=== PATIENT | female | born 1955 | race Caucasian/White ===

== ENCOUNTER 2019-02-05 05:45 | Inpatient (IN) ==
[2019-01-29 13:22] LABS: Basophils # 0.1 10*3/uL (0.0-0.2); Basophils % 0.8 % (0.0-0.8); Eosinophils # 0.2 10*3/uL (0.0-0.87); Eosinophils % 2.4 % (0.00-10.9); Hematocrit 43.1 VOL% (35.7-47.0); Immature Granulocytes % 0.4 %; Immature Granulocytes Absolute 0.04 #; Lymphocytes # 2.5 10*3/uL (1.4-4.0); Lymphocytes % 25.7 % (21.3-54.2); Mean Corpuscular HGB Conc 32.5 GM/DL (32-36); Mean Corpuscular Hemoglobin 30 PG (27-34); Mean Corpuscular Volume 92.3 FL (87-102); Mean Platelet Volume 9.6 FL (9.6-12.0); Monocytes # 0.9 10*3/uL (0.11-0.8); Monocytes % 9.3 % (1.7-12.7); Neutrophils # 5.9 10*3/uL (1.4-7.4); Neutrophils % 61.4 % (38.7-73.9); Platelet Count 317 T/CUMM (130-400); Red Blood Count 4.67 MC/CUMM (3.8-5.5); White Blood Count 9.6 T/CUMM (4-12)
[2019-01-29 13:42] LABS: Calcium 8.5 MG/DL (8.5-10.1); Osmolality,Calculated 281.5 MOS/KG (273-304)
[2019-01-29 13:46] LABS: Apearance,Urine Slightly Hazy (Clear); Bacteria,Urine Moderate /HPF (Few); Bilirubin,Urine Negative (Negative); Blood, Urine Small mg/dL (Negative); Glucose,Urine (UA) Negative (Negative); Ketones,Urine Negative (Negative); Mucus,Urine Occasional /LPF (Occasional); Nitrite,Urine Positive (Negative); Protein,Urine 30 MG/DL; RBC,Urine 1 /HPF (0-4); Squamous Epithelial Cell,Urine Occasional /HPF (0-10); Urine Color Yellow (Yellow); Urine Specific Gravity 1.013 (1.001-1.035); Urine Urobilinogen < 2.0 EU/DL (0.2-1.0); WBC,Urine 17 /HPF (0-6)
[~2019-02-05 05:45] MED LIST: FAMOTIDINE 20 MG TABLET PO ONE
[2019-02-05] MEDS ORDERED: LEVOFLOXACIN INJ 500 MG in PREMIX 1 EACH IV ONE (06:00)
[2019-02-05] MEDS ORDERED: LACTATED RINGERS 1,000 ML IV SCH (06:00)
[2019-02-05] MEDS ORDERED: ALVIMOPAN 12 MG CAPSULE ONE (06:11)
[2019-02-05] MEDS ORDERED: FAMOTIDINE 20 MG TABLET ONE (06:49)
[2019-02-05] MEDS ORDERED: ALVIMOPAN 12 MG CAPSULE PO ONE (06:53)
[2019-02-05] MEDS ORDERED: AZTREONAM 1,000 MG in SYRINGE 1 EACH IV ONE (08:00)
[2019-02-05 09:09] LABS: Amorphous Crystals,Urine Occasional /HPF (Few); Apearance,Urine CLEAR (Clear); Bacteria,Urine Occasional /HPF (Few); Bilirubin,Urine Negative (Negative); Blood, Urine Negative (Negative); Glucose,Urine (UA) Negative (Negative); Ketones,Urine Negative (Negative); Mucus,Urine Occasional /LPF (Occasional); Nitrite,Urine Positive (Negative); Protein,Urine Negative; RBC,Urine 3 /HPF (0-4); Squamous Epithelial Cell,Urine Occasional /HPF (0-10); Urine Color Yellow (Yellow); Urine Specific Gravity 1.009 (1.001-1.035); Urine Urobilinogen < 2.0 EU/DL (0.2-1.0); WBC,Urine 13 /HPF (0-6)
[2019-02-05] MEDS ORDERED: TISSUE ADHESIVE 1 EACH APPLICATOR TOP ONE (09:42)
[2019-02-05] MEDS ORDERED: ONDANSETRON 4 MG/2 ML VIAL IV PRN (09:46)
[2019-02-05] MEDS ORDERED: oxyCODONE/ACETAMINOPHEN 5-325 MG TABLET PO PRN ×2 (09:50→09:55)
[2019-02-05] MEDS ORDERED: HYDROmorphone 2 MG/1 ML VIAL IV PRN (09:50)
[2019-02-05] MEDS ORDERED: PROPOFOL 200 MG/20 ML VIAL IV ONE (10:14)
[2019-02-05] MEDS ORDERED: SEVOFLURANE 1 UNIT/15 MINUTE INH ONE (10:14)
[2019-02-05] MEDS ORDERED: fentaNYL 100 MCG/2 ML VIAL ONE (10:14)
[2019-02-05] MEDS ORDERED: ACETAMINOPHEN 1,000 MG/100 ML VIAL IV ONE (10:15)
[2019-02-05] MEDS ORDERED: SUCCINYLCHOLINE 200 MG/10 ML VIAL ONE (10:15)
[2019-02-05] MEDS ORDERED: GLYCOPYRROLATE 0.4 MG/2 ML VIAL ONE (10:15)
[2019-02-05] MEDS ORDERED: NEOSTIGMINE 10 MG/10 ML VIAL ONE (10:15)
[2019-02-05] MEDS ORDERED: ROCURONIUM 100 MG/10 ML VIAL IV ONE (10:15)
[2019-02-05] MEDS ORDERED: DEXAMETHASONE 4 MG/1 ML VIAL ONE (10:15)
[2019-02-05] MEDS ORDERED: MIDAZOLAM 2 MG/2 ML VIAL ONE (10:15)
[2019-02-05] MEDS ORDERED: ONDANSETRON 4 MG/2 ML VIAL ONE (10:15)
[2019-02-05] MEDS: AMOXICILLIN 500 MG CAPSULE PO SCH ×2 (14:59→21:32)
[2019-02-05] MEDS: SODIUM CHLORIDE 0.45% 1,000 ML IV SCH (15:00)
[2019-02-05] MEDS ORDERED: DEXTROSE 50% 25 GM/50 ML VIAL IV PRN (15:07)
[2019-02-05] MEDS ORDERED: GLUCAGON 1 MG VIAL IM PRN (15:07)
[2019-02-05] MEDS ORDERED: PHENOL 1.4% THROAT SPRAY 177 ML BOTTLE PO PRN (20:14)
[2019-02-05] MEDS ORDERED: FAMOTIDINE 20 MG TABLET PO SCH (21:00)
[2019-02-05] MEDS: FAMOTIDINE 20 MG TABLET PO SCH (21:32)
[2019-02-06] MEDS: SODIUM CHLORIDE 0.45% 1,000 ML IV SCH (01:15)
[2019-02-06] MEDS: LEVOTHYROXINE 100 MCG TABLET PO SCH (08:20)
[2019-02-06] MEDS: POTASSIUM CITRATE 10 MEQ TABLET PO SCH (08:21)
[2019-02-06] MEDS: hydroCHLOROthiazide 25 MG TABLET PO SCH (08:21)
[2019-02-06] MEDS: OXYBUTYNIN XL 10 MG TABLET PO SCH (08:25)
[2019-02-06] MEDS: amLODIPine 10 MG TABLET PO SCH (08:25)
[2019-02-06 08:57] LABS: Basophils % 0.2 % (0.0-0.8); Hematocrit 33.5 VOL% (35.7-47.0); Hemoglobin 10.9 GM/DL (12.0-16.0); Immature Granulocytes Absolute 0.23 #; Lymphocytes # 1.5 10*3/uL (1.4-4.0); Lymphocytes % 6.8 % (21.3-54.2); Mean Corpuscular HGB Conc 32.5 GM/DL (32-36); Mean Corpuscular Hemoglobin 30 PG (27-34); Mean Platelet Volume 9.8 FL (9.6-12.0); Monocytes # 1.7 10*3/uL (0.11-0.8); Monocytes % 7.7 % (1.7-12.7); Neutrophils % 84.3 % (38.7-73.9); Platelet Count 268 T/CUMM (130-400); Red Blood Count 3.64 MC/CUMM (3.8-5.5); Red Cell Distribution Width 12.6 % (9.3-17.3); White Blood Count 22.5 T/CUMM (4-12)
[2019-02-06] MEDS ORDERED: traZODone 50 MG TABLET PO SCH (09:00)
[2019-02-06 09:20] LABS: Band Neutrophils 2 % (0-10); Lymphocytes 5 % (20-55); Platelet Estimate Normal; Segmented Neutrophils 84 % (50-85); Total Cells Counted 100
[2019-02-06 09:28] LABS: Osmolality,Calculated 270.8 MOS/KG (273-304); Potassium 4.3 MMOL/L (3.5-5.1)
[2019-02-06] MEDS ORDERED: FUROSEMIDE 20 MG/2 ML VIAL IV ONE (09:56)
[2019-02-06] MEDS: FAMOTIDINE 20 MG TABLET PO SCH (20:31)
[2019-02-07] MEDS: LEVOTHYROXINE 100 MCG TABLET PO SCH (06:43)
[2019-02-07 06:52] LABS: Calcium 8.1 MG/DL (8.5-10.1); Osmolality,Calculated 289.4 MOS/KG (273-304); Potassium 3.6 MMOL/L (3.5-5.1)
[2019-02-07 07:58] VITALS: BP 118/75
[2019-02-07] MEDS: hydroCHLOROthiazide 25 MG TABLET PO SCH (09:15)
[2019-02-07] MEDS: OXYBUTYNIN XL 10 MG TABLET PO SCH (09:15)
[2019-02-07] MEDS: POTASSIUM CITRATE 10 MEQ TABLET PO SCH (09:15)
[2019-02-07] MEDS: amLODIPine 10 MG TABLET PO SCH (09:15)
[2019-02-07] MEDS ORDERED: traZODone 50 MG TABLET PO SCH (21:00)
[2019-02-10 16:36] LABS: Stone Source Kidney
== END 2019-02-07 10:05 | disposition home or self-care (01) | DRG 660 ==
LOC: N.RAD 05:45 → N.SDSINP 05:50 → EDSDCBED 09:46 → N.5E 10:58 → N.RAD 02-07 10:05 → UNDODEPSDC 02-07 14:44
PROVIDERS: ADMIT Urology; ATTEND Urology

== ENCOUNTER 2019-02-16 04:08 | Inpatient (IN) ==
[2019-02-16] MEDS ORDERED: SODIUM CHLORIDE 0.9% 1,000 ML IV STA (04:38)
[2019-02-16 04:49] LABS: Basophils # 0.2 10*3/uL (0.0-0.2); Basophils % 0.4 % (0.0-0.8); Hemoglobin 11.5 GM/DL (12.0-16.0); Immature Granulocytes Absolute 1.25 #; Lymphocytes # 0.9 10*3/uL (1.4-4.0); Lymphocytes % 2.2 % (21.3-54.2); Mean Corpuscular HGB Conc 32.9 GM/DL (32-36); Mean Corpuscular Volume 92.1 FL (87-102); Mean Platelet Volume 9.3 FL (9.6-12.0); Monocytes % 7.4 % (1.7-12.7); Platelet Count 407 T/CUMM (130-400); Red Cell Distribution Width 12.8 % (9.3-17.3)
[2019-02-16 04:51] LABS: White Blood Count 41.3 T/CUMM (4-12)
[2019-02-16 04:53] LABS: INR 0.9; PT Patient Result 9.7 SECS; Partial Thromboplastin Time 23.7 SECS (0-40)
[2019-02-16 05:03] LABS: Albumin 3.4 G/DL (3.4-5.0); Bilirubin,Total 1.1 MG/DL (0.2-1.0); Calcium 8.8 MG/DL (8.5-10.1); Total Protein 7.6 G/DL (6.4-8.3)
[2019-02-16 05:39] LABS: Band Neutrophils 5 % (0-10); Lymphocytes 1 % (20-55); Metamyelocytes 1 %; Segmented Neutrophils 86 % (50-85)
[2019-02-16 05:41] LABS: Hypochromasia 1+; Platelet Estimate Increased; Polychromasia Few; Total Cells Counted 100
[2019-02-16] MEDS ORDERED: LEVOFLOXACIN INJ 500 MG in PREMIX 1 EACH IV STA (06:03)
[2019-02-16] MEDS ORDERED: MEROPENEM 1,000 MG in SODIUM CHLORIDE 0.9% 100 ML IV STA (07:16)
[2019-02-16] MEDS ORDERED: LACTULOSE 20 GM/30 ML UDCUP PO PRN (07:58)
[2019-02-16] MEDS ORDERED: DOCUSATE SODIUM 100 MG CAPSULE PO PRN (07:58)
[2019-02-16] MEDS ORDERED: ONDANSETRON 4 MG/2 ML VIAL IV PRN (07:58)
[2019-02-16] MEDS ORDERED: ACETAMINOPHEN 325 MG TABLET PO PRN (07:58)
[2019-02-16] MEDS ORDERED: DEXTROSE 50% 25 GM/50 ML VIAL IV PRN (08:23)
[2019-02-16] MEDS ORDERED: GLUCAGON 1 MG VIAL IM PRN (08:23)
[2019-02-16 08:32] LABS: Risk Ratio 3.07; Thyroid Stimulating Hormone 1.01 uIU/ml (0.358-3.74); VLDL CHOLESTEROL 14.6 MG/DL
[2019-02-16] MEDS ORDERED: INSULIN LISPRO 100 UNIT/ML SUBCUT SCH (09:00)
[2019-02-16] MEDS ORDERED: traZODone 50 MG TABLET PO PRN (09:58)
[2019-02-16] MEDS: SODIUM CHLORIDE 0.9% 1,000 ML IV SCH ×2 (10:20→20:56)
[2019-02-16] MEDS: POTASSIUM CITRATE 10 MEQ TABLET PO SCH ×2 (10:35→21:02)
[2019-02-16 10:59] LABS: Mucus,Urine Occasional /LPF (Occasional); RBC,Urine 11522 /HPF (0-4); WBC,Urine 45 /HPF (0-6)
[2019-02-16 11:02] LABS: Apearance,Urine Turbid (Clear); Glucose,Urine (UA) Negative (Negative); Ketones,Urine Negative (Negative); Protein,Urine >500 MG/DL; Urine Color Red (Yellow); Urine Specific Gravity 1.005 (1.001-1.035)
[2019-02-16 11:03] LABS: Bilirubin,Urine Negative (Negative); Blood, Urine Large mg/dL (Negative); Nitrite,Urine Negative (Negative)
[2019-02-16 11:04] LABS: Bacteria,Urine Occasional /HPF (Few)
[2019-02-16] MEDS: PANTOPRAZOLE 40 MG TABLET PO SCH (11:13)
[2019-02-16] MEDS ORDERED: fentaNYL 100 MCG/2 ML VIAL ONE (13:49)
[2019-02-16] MEDS ORDERED: ONDANSETRON 4 MG/2 ML VIAL ONE (13:49)
[2019-02-16] MEDS ORDERED: PROPOFOL 200 MG/20 ML VIAL IV ONE (13:49)
[2019-02-16] MEDS ORDERED: SEVOFLURANE 1 UNIT/15 MINUTE INH ONE (13:49)
[2019-02-16] MEDS ORDERED: PHENYLEPHRINE 1 MG/10 ML SYRINGE IV ONE (13:49)
[2019-02-16] MEDS ORDERED: SUCCINYLCHOLINE 200 MG/10 ML VIAL ONE (13:50)
[2019-02-16] MEDS: hydroCHLOROthiazide 25 MG TABLET PO SCH (14:02)
[2019-02-16] MEDS: amLODIPine 10 MG TABLET PO SCH (14:02)
[2019-02-16 14:52] LABS: Hematocrit 32.1 VOL% (35.7-47.0); Hemoglobin 10.5 GM/DL (12.0-16.0)
[2019-02-16] MEDS: INSULIN LISPRO 100 UNIT/ML SUBCUT SCH (17:10)
[2019-02-16 20:06] LABS: Hematocrit 29.4 VOL% (35.7-47.0); Hemoglobin 9.6 GM/DL (12.0-16.0)
[2019-02-16] MEDS: MEROPENEM 500 MG in SODIUM CHLORIDE 0.9% 100 ML IV SCH (20:59)
[2019-02-16] MEDS: FAMOTIDINE 20 MG TABLET PO SCH (21:03)
[2019-02-17] MEDS: LEVOTHYROXINE 100 MCG TABLET PO SCH (06:09)
[2019-02-17 06:17] LABS: Basophils % 0.2 % (0.0-0.8); Eosinophils % 0.1 % (0.00-10.9); Hematocrit 28.9 VOL% (35.7-47.0); Hemoglobin 9.1 GM/DL (12.0-16.0); Immature Granulocytes % 0.6 %; Immature Granulocytes Absolute 0.13 #; Lymphocytes # 1.3 10*3/uL (1.4-4.0); Lymphocytes % 6.1 % (21.3-54.2); Mean Corpuscular HGB Conc 31.5 GM/DL (32-36); Mean Corpuscular Volume 95.1 FL (87-102); Mean Platelet Volume 10.1 FL (9.6-12.0); Monocytes % 5.8 % (1.7-12.7); Neutrophils % 87.2 % (38.7-73.9); Platelet Count 288 T/CUMM (130-400); Red Blood Count 3.04 MC/CUMM (3.8-5.5); Red Cell Distribution Width 13.3 % (9.3-17.3); White Blood Count 20.9 T/CUMM (4-12)
[2019-02-17 06:18] LABS: Hematocrit 28.3 VOL% (35.7-47.0); Hemoglobin 9.2 GM/DL (12.0-16.0)
[2019-02-17 06:28] LABS: Calcium 7.5 MG/DL (8.5-10.1)
[2019-02-17 06:48] LABS: Band Neutrophils 2 % (0-10); Hypochromasia 2+; Lymphocytes 6 % (20-55); Platelet Estimate Normal; Segmented Neutrophils 88 % (50-85); Total Cells Counted 100
[2019-02-17] MEDS: INSULIN LISPRO 100 UNIT/ML SUBCUT SCH ×3 (07:54→16:57)
[2019-02-17] MEDS: SODIUM CHLORIDE 0.9% 1,000 ML IV SCH ×2 (07:54→19:32)
[2019-02-17] MEDS: MEROPENEM 500 MG in SODIUM CHLORIDE 0.9% 100 ML IV SCH ×2 (09:42→19:33)
[2019-02-17] MEDS: POTASSIUM CITRATE 10 MEQ TABLET PO SCH ×2 (09:43→21:12)
[2019-02-17] MEDS: hydroCHLOROthiazide 25 MG TABLET PO SCH (09:43)
[2019-02-17] MEDS: amLODIPine 10 MG TABLET PO SCH (09:43)
[2019-02-17] MEDS: PANTOPRAZOLE 40 MG TABLET PO SCH (09:43)
[2019-02-17 13:03] LABS: Hematocrit 29.5 VOL% (35.7-47.0); Hemoglobin 9.4 GM/DL (12.0-16.0)
[2019-02-17] MEDS: POLYETHYLENE GLYCOL POWDER 17 GM PACK PO SCH (21:12)
[2019-02-17] MEDS: FAMOTIDINE 20 MG TABLET PO SCH (21:12)
[2019-02-17] MEDS: DOCUSATE SODIUM 100 MG CAPSULE PO SCH (21:13)
[2019-02-18 04:24] LABS: Basophils % 0.3 % (0.0-0.8); Eosinophils # 0.1 10*3/uL (0.0-0.87); Eosinophils % 0.7 % (0.00-10.9); Hematocrit 28.6 VOL% (35.7-47.0); Immature Granulocytes % 0.6 %; Immature Granulocytes Absolute 0.09 #; Lymphocytes % 6.6 % (21.3-54.2); Mean Corpuscular HGB Conc 31.5 GM/DL (32-36); Mean Platelet Volume 9.8 FL (9.6-12.0); Monocytes % 7.7 % (1.7-12.7); Neutrophils % 84.1 % (38.7-73.9); Platelet Count 246 T/CUMM (130-400); Red Blood Count 2.98 MC/CUMM (3.8-5.5); Red Cell Distribution Width 13.2 % (9.3-17.3); White Blood Count 14.7 T/CUMM (4-12)
[2019-02-18 04:51] LABS: Calcium 7.6 MG/DL (8.5-10.1); Osmolality,Calculated 281.5 MOS/KG (273-304)
[2019-02-18] MEDS: SODIUM CHLORIDE 0.9% 1,000 ML IV SCH (06:19)
[2019-02-18] MEDS: LEVOTHYROXINE 100 MCG TABLET PO SCH (06:19)
[2019-02-18] MEDS: MEROPENEM 500 MG in SODIUM CHLORIDE 0.9% 100 ML IV SCH ×2 (08:21→20:55)
[2019-02-18] MEDS: PANTOPRAZOLE 40 MG TABLET PO SCH (08:22)
[2019-02-18] MEDS: INSULIN LISPRO 100 UNIT/ML SUBCUT SCH ×3 (08:22→16:59)
[2019-02-18] MEDS: DOCUSATE SODIUM 100 MG CAPSULE PO SCH ×2 (08:22→21:00)
[2019-02-18] MEDS: hydroCHLOROthiazide 25 MG TABLET PO SCH (08:22)
[2019-02-18] MEDS: POLYETHYLENE GLYCOL POWDER 17 GM PACK PO SCH ×2 (08:22→21:00)
[2019-02-18] MEDS: amLODIPine 10 MG TABLET PO SCH (08:22)
[2019-02-18] MEDS: POTASSIUM CITRATE 10 MEQ TABLET PO SCH ×2 (08:30→20:59)
[2019-02-18] MEDS ORDERED: CALCIUM CHLORIDE 1,000 MG in SODIUM CHLORIDE 0.9% 100 ML IV ONE (11:51)
[2019-02-18] MEDS: FAMOTIDINE 20 MG TABLET PO SCH (20:59)
[2019-02-19 04:47] LABS: Osmolality,Calculated 277.8 MOS/KG (273-304)
[2019-02-19 04:55] LABS: Basophils % 0.3 % (0.0-0.8); Eosinophils # 0.2 10*3/uL (0.0-0.87); Eosinophils % 1.2 % (0.00-10.9); Hematocrit 28.8 VOL% (35.7-47.0); Hemoglobin 9.2 GM/DL (12.0-16.0); Immature Granulocytes % 0.7 %; Immature Granulocytes Absolute 0.09 #; Lymphocytes # 1.4 10*3/uL (1.4-4.0); Lymphocytes % 11.4 % (21.3-54.2); Mean Corpuscular HGB Conc 31.9 GM/DL (32-36); Mean Corpuscular Volume 93.2 FL (87-102); Mean Platelet Volume 9.9 FL (9.6-12.0); Monocytes % 14.7 % (1.7-12.7); Neutrophils % 71.7 % (38.7-73.9); Platelet Count 287 T/CUMM (130-400); Red Blood Count 3.09 MC/CUMM (3.8-5.5); Red Cell Distribution Width 12.9 % (9.3-17.3); White Blood Count 12.6 T/CUMM (4-12)
[2019-02-19] MEDS: LEVOTHYROXINE 100 MCG TABLET PO SCH (06:18)
[2019-02-19] MEDS: POTASSIUM CITRATE 10 MEQ TABLET PO SCH ×2 (08:24→21:50)
[2019-02-19] MEDS: hydroCHLOROthiazide 25 MG TABLET PO SCH (08:24)
[2019-02-19] MEDS: amLODIPine 10 MG TABLET PO SCH (08:24)
[2019-02-19] MEDS: DOCUSATE SODIUM 100 MG CAPSULE PO SCH ×2 (08:24→21:51)
[2019-02-19] MEDS: PANTOPRAZOLE 40 MG TABLET PO SCH (08:25)
[2019-02-19] MEDS: MEROPENEM 500 MG in SODIUM CHLORIDE 0.9% 100 ML IV SCH ×2 (08:25→21:50)
[2019-02-19] MEDS: INSULIN LISPRO 100 UNIT/ML SUBCUT SCH ×3 (08:25→16:22)
[2019-02-19] MEDS: POLYETHYLENE GLYCOL POWDER 17 GM PACK PO SCH ×2 (08:25→21:51)
[2019-02-19] MEDS: FAMOTIDINE 20 MG TABLET PO SCH (21:50)
[2019-02-20] MEDS: LEVOTHYROXINE 100 MCG TABLET PO SCH (06:36)
[2019-02-20 08:00] VITALS: BP 128/57
[2019-02-20] MEDS: POTASSIUM CITRATE 10 MEQ TABLET PO SCH (09:07)
[2019-02-20] MEDS: hydroCHLOROthiazide 25 MG TABLET PO SCH (09:07)
[2019-02-20] MEDS: INSULIN LISPRO 100 UNIT/ML SUBCUT SCH (09:07)
[2019-02-20] MEDS: MEROPENEM 500 MG in SODIUM CHLORIDE 0.9% 100 ML IV SCH (09:07)
[2019-02-20] MEDS: amLODIPine 10 MG TABLET PO SCH (09:07)
[2019-02-20] MEDS: POLYETHYLENE GLYCOL POWDER 17 GM PACK PO SCH (09:07)
[2019-02-20] MEDS: DOCUSATE SODIUM 100 MG CAPSULE PO SCH (09:07)
[2019-02-20] MEDS: PANTOPRAZOLE 40 MG TABLET PO SCH (09:12)
== END 2019-02-20 11:50 | disposition home or self-care (01) | DRG 660 ==
LOC: N.EDINP 04:08 → N.ED 04:08 → N.5E 08:48 → SUATTDRO 02-17 08:54
PROVIDERS: ADMIT Hospitalist; ATTEND Internal Medicine